=== PATIENT | male | born 1960 | race Caucasian/White ===

== ENCOUNTER 2020-11-23 12:07 | Emergency (ER) | payer MEDICARE ==
[~2020-11-23 12:07] MED LIST: ACETAMINOPHEN325 MG PO; ALDACTONE50 MG PO; AMOXICILLIN500 MG PO; ANTACID300 MG PO; ARICEPT10 MG PO; BACLOFEN 10MG T10 MG PO; BUPROPION XL300 MG PO; CIPRO500 MG PO; CLARITIN10 MG PO; COLACE100 M1 PO; DITROPAN5 MG PO; FLEXERIL10 MG PO; FLOMAX0.4 MG PO; FLONASE ALLER15.8 ML; FLOVENT HF120 PUFFS/; FLUOXETINE HCL40 MG PO; GABAPENTIN600 MG PO; GAS-X125 M1 PO; KLONOPIN0.5 MG PO; LACTULOSE10 G/15 ML PO; LACTULOSE10 G/15 ML PR; LASIX40 MG PO; MELATIN3 MG PO; MELOXICAM15 MG PO; NORCO 5-325 TA1 EACH PO; NORCO 7.5-3251 EACH PO; NORVASC10 MG PO; OXYCODONE HCL5 MG PO; PAIN RELIEVING28 GM TOP; PERCOCET 5-3251 EACH PO; PRAVACHOL40 MG PO; PRAVASTATIN SOD40 MG PO; PROZAC40 MG PO; RISPERIDONE1 MG PO; RISPERIDONE2 MG PO
[2020-11-23 12:58] LABS: BASOPHIL 0.6 % (0-2); EOSINOPHIL 1.3 % (0-5); HCT 43.1 % (42.0-52.0); HGB 14.7 g/dl (13.2-18.0); LYMPHOCYTE 19.3 % (15-48); MCH 30.2 pg (25.0-31.0); MCHC 34.1 g/dL (32.0-36.0); MCV 88.5 fL (78.0-100.0); MONOCYTE 8.1 % (0-12); MPV 10.7 fL (6.0-9.5); NEUTROPHIL 69.7 % (41-80); NRBC 0; PLT 263 K/uL (150-400); RBC 4.87 M/uL (4.70-6.00); RDW 13.5 % (11.5-14.0); WBC 11.9 K/uL (4.0-10.5)
[2020-11-23 12:58] LABS: BILIRUBIN NEGATIVE (NEGATIVE); BLOOD NEGATIVE Ery/uL (NEGATIVE); CLARITY CLEAR (CLEAR); COLOR YELLOW (YELLOW); GLUCOSE (U) NORMAL (NORMAL); LEUKOCYTES NEGATIVE Leu/uL (NEGATIVE); NITRITE NEGATIVE (NEGATIVE); PROTEIN NEGATIVE (NEGATIVE); UROBILINOGEN 0.2 mg/dL (0.2-1.0)
[2020-11-23 13:13] LABS: CREATININE 0.81 mg/dL (0.67-1.17); POTASSIUM 4.2 mmol/L (3.5-5.1)
[2020-11-23] MEDS ORDERED: KEPPRA XR500 MG PO (15:45)
== END 2020-11-23 16:34 | disposition home or self-care (01) ==
LOC: FER 12:07
PROVIDERS: Nurse Practitioner Family
DX: G40.909 Epilepsy, unspecified, not intractable, without status epilepticus (principal); I10 Essential (primary) hypertension; E11.9 Type 2 diabetes mellitus without complications; Z88.8 Allergy status to other drugs, medicaments and biological substances; Z88.5 Allergy status to narcotic agent
CPT/HCPCS: 36415; 70450; 80048; 81003; 84484; 85025; 93005; J1953; J2060

== ENCOUNTER 2021-02-09 18:02 | Emergency (ER) | payer MEDICARE ==
[~2021-02-09 18:02] MED LIST changes: +KEPPRA XR500 MG PO
[2021-02-09 19:11] LABS: BASOPHIL 0.7 % (0-2); EOSINOPHIL 1.3 % (0-5); HCT 45.7 % (42.0-52.0); HGB 15.5 g/dl (13.2-18.0); LYMPHOCYTE 26.1 % (15-48); MCH 29.6 pg (25.0-31.0); MCHC 33.9 g/dL (32.0-36.0); MCV 87.4 fL (78.0-100.0); MONOCYTE 8.1 % (0-12); MPV 10.6 fL (6.0-9.5); NEUTROPHIL 62.5 % (41-80); NRBC 0; PLT 283 K/uL (150-400); RBC 5.23 M/uL (4.70-6.00); RDW 12.8 % (11.5-14.0); WBC 8.9 K/uL (4.0-10.5)
[2021-02-09 19:36] LABS: ALBUMIN 3.5 g/dL (3.4-5.0); BILIRUBIN - TOTAL 0.1 mg/dL (0.2-1.0); BUN/CREAT RATIO (CALC) 14.5 RATIO; CREATININE 0.83 mg/dL (0.67-1.17); POTASSIUM 4.6 mmol/L (3.5-5.1); TOTAL PROTEIN 7.5 g/dL (6.4-8.2)
[2021-02-10 01:38] LABS: BILIRUBIN NEGATIVE (NEGATIVE); BLOOD NEGATIVE Ery/uL (NEGATIVE); CLARITY CLEAR (CLEAR); COLOR YELLOW (YELLOW); GLUCOSE (U) NORMAL (NORMAL); LEUKOCYTES NEGATIVE Leu/uL (NEGATIVE); NITRITE NEGATIVE (NEGATIVE); PROTEIN NEGATIVE (NEGATIVE); SPECIFIC GRAVITY <=1.005 (1.001-1.030); UROBILINOGEN 0.2 mg/dL (0.2-1.0); pH 5.5 (5.0-9.0)
[2021-02-10 01:40] LABS: AMPHETAMINES NEGATIVE (NEGATIVE); BARBITURATES NEGATIVE (NEGATIVE); ECSTASY (MDMA) NEGATIVE (NEGATIVE); MARIJUANA (THC) NEGATIVE (NEGATIVE); METHADONE NEGATIVE (NEGATIVE); OPIATES POSITIVE (NEGATIVE); OXYCODONE NEGATIVE (NEGATIVE)
== END 2021-02-10 17:15 ==
LOC: FER 18:02
PROVIDERS: Emergency Medicine; Emergency Medicine Emergency Medical Services
DX: F10.129 Alcohol abuse with intoxication, unspecified (principal); R45.1 Restlessness and agitation; R45.851 Suicidal ideations; Z88.5 Allergy status to narcotic agent; Z88.8 Allergy status to other drugs, medicaments and biological substances; Y90.8 Blood alcohol level of 240 mg/100 ml or more; Z20.822 Contact with and (suspected) exposure to COVID-19; Z79.1 Long term (current) use of non-steroidal anti-inflammatories (NSAID); Z79.82 Long term (current) use of aspirin; Z79.891 Long term (current) use of opiate analgesic; Z79.899 Other long term (current) drug therapy
CPT/HCPCS: 36415; 80053; 80305; 81003; 85025; 96372; 99285; G0480; J7030; U0002

== ENCOUNTER 2021-02-22 19:10 | Emergency (ER) | payer MEDICARE, OTHER | END 2021-02-23 06:58 | disposition home or self-care (01) | LOC: FER 19:10 | DX: F10.129 Alcohol abuse with intoxication, unspecified (principal); F03.90 Unspecified dementia, unspecified severity, without behavioral disturbance, psychotic disturbance, mood disturbance, and anxiety; Z88.5 Allergy status to narcotic agent; Z88.8 Allergy status to other drugs, medicaments and biological substances; Y90.8 Blood alcohol level of 240 mg/100 ml or more | CPT/HCPCS: 36415; 99285; G0480; J1200; J1630; J2060 ==

== ENCOUNTER 2021-02-24 05:50 | Emergency (ER) | payer MEDICARE, OTHER | END 2021-02-24 13:05 | disposition other institution (70) | LOC: FER 05:50 | DX: F43.10 Post-traumatic stress disorder, unspecified (principal); E66.01 Morbid (severe) obesity due to excess calories; I10 Essential (primary) hypertension; F25.9 Schizoaffective disorder, unspecified; Z86.73 Personal history of transient ischemic attack (TIA), and cerebral infarction without residual deficits; Z88.5 Allergy status to narcotic agent; Z88.8 Allergy status to other drugs, medicaments and biological substances | CPT/HCPCS: 96372; 99285; J2060 ==

== ENCOUNTER 2021-03-12 20:33 | Emergency (ER) | payer MEDICARE, OTHER ==
[2021-03-13 00:05] LABS: BASOPHIL 0.6 % (0-2); EOSINOPHIL 0.2 % (0-5); HCT 38.9 % (42.0-52.0); HGB 13.3 g/dl (13.2-18.0); LYMPHOCYTE 25.5 % (15-48); MCH 29.8 pg (25.0-31.0); MCHC 34.2 g/dL (32.0-36.0); MONOCYTE 12.4 % (0-12); MPV 10.7 fL (6.0-9.5); NEUTROPHIL 60.2 % (41-80); NRBC 0.2; PLT 260 K/uL (150-400); RBC 4.47 M/uL (4.70-6.00); RDW 13.3 % (11.5-14.0); WBC 12.1 K/uL (4.0-10.5)
[2021-03-13 00:21] LABS: BILIRUBIN 1+ mg/dL (NEGATIVE); BLOOD NEGATIVE Ery/uL (NEGATIVE); CLARITY CLEAR (CLEAR); COLOR YELLOW (YELLOW); GLUCOSE (U) NORMAL (NORMAL); LEUKOCYTES NEGATIVE Leu/uL (NEGATIVE); NITRITE NEGATIVE (NEGATIVE); PROTEIN NEGATIVE (NEGATIVE); SPECIFIC GRAVITY 1.015 (1.001-1.030); UROBILINOGEN 0.2 mg/dL (0.2-1.0)
[2021-03-13 00:24] LABS: LACTIC ACID 1.5 mmol/L (0.4-1.9)
[2021-03-13 00:27] LABS: AMPHETAMINES NEGATIVE (NEGATIVE); BARBITURATES NEGATIVE (NEGATIVE); ECSTASY (MDMA) NEGATIVE (NEGATIVE); MARIJUANA (THC) NEGATIVE (NEGATIVE); METHADONE NEGATIVE (NEGATIVE); OPIATES NEGATIVE (NEGATIVE); OXYCODONE NEGATIVE (NEGATIVE)
[2021-03-13 00:27] LABS: PRO-BNP 514 pg/mL (<125)
[2021-03-13 00:30] LABS: BUN 19 mg/dL (7-18); CREATININE 0.68 mg/dL (0.67-1.17); GLUCOSE 117 mg/dL (74-106)
[2021-03-13 00:31] LABS: ALBUMIN 3.3 g/dL (3.4-5.0); ALKALINE PHOSHATASE 54 U/L (46-116); ALT 38 U/L (16-63); AST 37 U/L (15-37); BILIRUBIN - TOTAL 0.4 mg/dL (0.2-1.0); BUN/CREAT RATIO (CALC) 27.9 RATIO; CHLORIDE 97 mmol/L (98-107); CO2 (BICARBONATE) 27 mmol/L (21-32); CPK 761 U/L (39-308); GLOBULIN (CALCULATION) 3.6 g/dL; LIPASE 66 U/L (73-393); TOTAL PROTEIN 6.9 g/dL (6.4-8.2)
[2021-03-13 00:32] LABS: ACETAMINOPHEN (TYLENOL) < 2.0 ug/mL (10.0-30.0)
== END 2021-03-13 12:07 | disposition other institution (70) ==
LOC: FER 20:33
PROVIDERS: Emergency Medicine Emergency Medical Services
DX: R07.89 Other chest pain (principal); R45.851 Suicidal ideations; I10 Essential (primary) hypertension; E11.9 Type 2 diabetes mellitus without complications; J44.9 Chronic obstructive pulmonary disease, unspecified; G20 Parkinson's disease; F17.200 Nicotine dependence, unspecified, uncomplicated; Z88.8 Allergy status to other drugs, medicaments and biological substances; Z20.822 Contact with and (suspected) exposure to COVID-19; Z79.4 Long term (current) use of insulin
CPT/HCPCS: 36415; 71045; 80053; 80305; 81003; 82550; 83605; 83690; 83880; 84484; 85025; 93005; 94640; 94664; G0480; J2060; J2405; U0002

== ENCOUNTER 2021-05-05 13:02 | Emergency (ER) | payer MEDICARE, OTHER ==
[2021-05-05 15:27] LABS: BILIRUBIN NEGATIVE (NEGATIVE); BLOOD NEGATIVE Ery/uL (NEGATIVE); CLARITY CLEAR (CLEAR); COLOR YELLOW (YELLOW); GLUCOSE (U) NORMAL (NORMAL); LEUKOCYTES NEGATIVE Leu/uL (NEGATIVE); NITRITE NEGATIVE (NEGATIVE); PROTEIN NEGATIVE (NEGATIVE); SPECIFIC GRAVITY 1.015 (1.001-1.030); UROBILINOGEN 0.2 mg/dL (0.2-1.0); pH 6.5 (5.0-9.0)
[2021-05-05 15:32] LABS: BASOPHIL 0.6 % (0-2); HCT 44.6 % (42.0-52.0); HGB 14.8 g/dl (13.2-18.0); LYMPHOCYTE 15.7 % (15-48); MCHC 33.2 g/dL (32.0-36.0); MCV 87.3 fL (78.0-100.0); MONOCYTE 8.4 % (0-12); MPV 10.2 fL (6.0-9.5); NEUTROPHIL 72.8 % (41-80); NRBC 0; PLT 303 K/uL (150-400); RBC 5.11 M/uL (4.70-6.00); RDW 13.1 % (11.5-14.0); WBC 10.9 K/uL (4.0-10.5)
[2021-05-05 15:36] LABS: ECSTASY (MDMA) NEGATIVE (NEGATIVE); MARIJUANA (THC) NEGATIVE (NEGATIVE); METHADONE NEGATIVE (NEGATIVE)
[2021-05-05 15:37] LABS: AMPHETAMINES NEGATIVE (NEGATIVE); BARBITURATES NEGATIVE (NEGATIVE); OPIATES POSITIVE (NEGATIVE); OXYCODONE NEGATIVE (NEGATIVE)
[2021-05-05 15:45] LABS: BUN 22 mg/dL (7-18); BUN/CREAT RATIO (CALC) 17.9 RATIO; CHLORIDE 97 mmol/L (98-107); CO2 (BICARBONATE) 24 mmol/L (21-32); CREATININE 1.23 mg/dL (0.67-1.17); GLUCOSE 109 mg/dL (74-106); POTASSIUM 5.1 mmol/L (3.5-5.1)
== END 2021-05-08 14:25 | disposition other institution (70) ==
LOC: FER 13:02
PROVIDERS: Nurse Practitioner Family
DX: S39.012A Strain of muscle, fascia and tendon of lower back, initial encounter (principal); R44.0 Auditory hallucinations; R44.1 Visual hallucinations; R45.851 Suicidal ideations; I10 Essential (primary) hypertension; Z88.6 Allergy status to analgesic agent; Z88.8 Allergy status to other drugs, medicaments and biological substances; Z20.822 Contact with and (suspected) exposure to COVID-19; W19.XXXA Unspecified fall, initial encounter
CPT/HCPCS: 36415; 72100; 80048; 80305; 81003; 85025; 97162; G0480; U0002